=== PATIENT | female | born 1965 | race Caucasian/White ===

== ENCOUNTER 2021-02-06 16:29 | Emergency (ER) | payer OTHER ==
[~2021-02-06] VITALS: Ht 170.2 cm; Wt 89.4 kg
[2021-02-06 17:05] VITALS: BP 149/78
[2021-02-06] MEDS ORDERED: ASPIRIN 325 MG TAB PO ONE (17:25)
--- NOTE | 2021-02-06 17:41 | NUR ---
PT AMBULATED TO BED 1
--- NOTE | 2021-02-06 17:44 | NUR ---
Lab at bedside.
--- NOTE | 2021-02-06 17:44 | NUR ---
EMT at bedside.
--- NOTE | 2021-02-06 17:50 | NUR ---
RAD at bedside.
--- NOTE | 2021-02-06 17:50 | NUR ---
55 y/o F BIB from home with c/c chest discomfort / heart palpitations. Patient A&Ox4, ambulatory, reports chest discomfort and "heart racing" since Saturday. Patient denies chest, reports intermittent heart racing and associated chills during the night. Ptaient also states 1.5 hrs ago she had an episode of SOB throat tightness while at the grocery store with her , however, symptoms self resolved. Patient denies nausea, vomiting, diarrhea, fever, chills, abdominal pain, dizziness, headache. Last BM: yesterday normal. Pt placed onto hospital monitor. VSS; respirations even/unlabored. SpO2 99% on room air. Bed locked in lowest position, side rails x 1, call light in reach. PMH/Meds: Denies Sx: , cholecysectomy, hysterectomy, appendectomy
[2021-02-06 17:56] LABS: BASOPHILS # (AUTO) 0.1 K/uL (0.00-0.22); BASOPHILS % (AUTO) 0.8 % (0.0-2.0); EOSINOPHILS # (AUTO) 0.3 K/uL (0-0.4); EOSINOPHILS % (AUTO) 3.2 % (0.0-4.0); HEMATOCRIT 38.8 % (36-48); HEMOGLOBIN 12.9 g/dL (12.0-16.0); LYMPHOCYTES % (AUTO) 28.5 % (20.5-51.1); MEAN CORPUSCULAR HEMOGLOBIN 33 pg (27-31); MEAN CORPUSCULAR HGB CONC 33 g/dL (33-37); MEAN CORPUSCULAR VOLUME 98.3 fL (80-94); MONOCYTES # (AUTO) 0.6 K/uL (0.8-1.0); MONOCYTES % (AUTO) 5.6 % (1.7-9.3); NEUTROPHILS # (AUTO) 6.4 K/uL (1.8-7.7); NEUTROPHILS % (AUTO) 61.9 % (42.2-75.2); PLATELET COUNT (AUTO) 271 K/uL (140-450); RED BLOOD CELL COUNT(AUTO) 3.94 MIL/uL (4.20-5.40); RED CELL DISTRIBUTION WIDTH 13.6 % (11.6-13.7); WHITE BLOOD COUNT (AUTO) 10.4 K/uL (4.8-10.8)
[2021-02-06 18:18] LABS: ANION GAP 9.6 (8-16); CARBON DIOXIDE 27.8 mmol/L (21-32); CREATININE 0.9 mg/dL (0.6-1.3); POTASSIUM 3.4 mmol/L (3.5-5.1); TOTAL BILIRUBIN 0.2 mg/dL (0.0-1.0)
--- NOTE | 2021-02-06 19:08 | NUR ---
Report received by IRMA Torres for continuation of care at this time.
--- NOTE | 2021-02-06 19:08 | NUR ---
Report and transfer of care endorsed to IRMA Duarte.
--- NOTE | 2021-02-06 19:22 | NUR ---
Patient sitting in bed locked in lowest position, x1 siderail up. Patient denies any chest pain or SOB. Breathing even and unlabored. S1S2 present, cap refil <3sec, radial pulses +2. NAD noted, will continue to monitor. at bedside.
[2021-02-06] MEDS ORDERED: HYDR-637 PO (20:01)
[2021-02-06 20:27] VITALS: BP 128/62
--- NOTE | 2021-02-06 20:27 | NUR ---
Patient discharged with v/s stable. Written and verbal after care instructions given and explained. Patient alert, oriented and verbalized understanding of instructions. Ambulatory with steady gait. All questions addressed prior to discharge. ID band removed. Patient advised to follow up with PMD. Rx of Hydroxyzine HCL given. Patient educated on indication of medication including possible reaction and side effects. Opportunity to ask questions provided and answered.
== END 2021-02-06 20:27 | disposition home or self-care (01) ==
LOC: MED 16:29
DX: R00.2 Palpitations (principal); R06.02 Shortness of breath; M79.89 Other specified soft tissue disorders; F17.210 Nicotine dependence, cigarettes, uncomplicated; Z90.49 Acquired absence of other specified parts of digestive tract; Z98.890 Other specified postprocedural states
CPT/HCPCS: 36415; 71045; 80053; 84443; 84484; 85025; 93005; 99285

== ENCOUNTER 2021-05-03 13:59 | Outpatient (CLI) | payer OTHER ==
[~2021-05-03 13:59] MED LIST: HYDR-637 PO
== END 2021-05-03 20:52 | disposition home or self-care (01) ==
LOC: MUS 13:59
PROVIDERS: ATTEND Physician Assistant
DX: K76.89 Other specified diseases of liver (principal); N28.1 Cyst of kidney, acquired; N20.0 Calculus of kidney; Z90.49 Acquired absence of other specified parts of digestive tract
CPT/HCPCS: 74160; Q9967